=== PATIENT | female | born 1975 | race Caucasian/White ===

== ENCOUNTER → 2016-12-01 | Outpatient (CLI) | payer OTHER ==
[~2016-12-01] MED LIST: ALBUTEROL0.09 MG/A2 IH; AMOXICILLIN500 MG PO; ANAPROX DS550 MG PO; ANTIVERT25 MG PO; CLARITIN10 MG PO; KEFLEX500 MG PO; MOTRIN800 MG PO; NKHM; PEPCID20 MG PO; PRILOSEC20 M1 PO; PROAIR HFA0.09 MG/AC IH; Phenergan25 MG PO; SF 5000 PLUS1.1% DE; VIBRAMYCIN100 MG PO; WYMOX500 MG PO; ZANTAC150 MG PO; ZITHROMAX Z PA250 MG PO; ZOFRAN4 MG PO
== END ==
LOC: US 13:44
DX: I65.21 Occlusion and stenosis of right carotid artery (principal); R53.1 Weakness; R20.9 Unspecified disturbances of skin sensation; Z87.891 Personal history of nicotine dependence

== ENCOUNTER 2018-01-29 16:05 | Emergency (ER) | payer OTHER ==
[~2018-01-29] VITALS: Ht 154.9 cm; Wt 64.4 kg
[2018-01-29 16:18] VITALS: BP 138/88
[2018-01-29] MEDS ORDERED: NEXIUM20 M2 PO (16:20)
[2018-01-29] MEDS ORDERED: LIDEX 0.05% CRE15 GM T (16:53)
== END 2018-01-29 17:01 | disposition home or self-care (01) ==
LOC: ED 16:05
DX: R60.9 Edema, unspecified (principal); F17.200 Nicotine dependence, unspecified, uncomplicated; Z79.899 Other long term (current) drug therapy; Z88.2 Allergy status to sulfonamides; Z88.5 Allergy status to narcotic agent; Z88.6 Allergy status to analgesic agent; Z88.8 Allergy status to other drugs, medicaments and biological substances

== ENCOUNTER 2018-05-03 23:15 | Inpatient (IN) | payer OTHER ==
[~2018-05-03] VITALS: Ht 157.4 cm; Wt 66.8 kg
[~2018-05-03 23:15] MED LIST changes: +LIDEX 0.05% CRE15 GM T; +NEXIUM20 M2 PO
[2018-05-03 23:17] VITALS: BP 160/73
[2018-05-03 23:29] LABS: BASO # 0.1 10*3/uL (0.0-0.1); BASO % 0.6 % (0.0-1.0); EOS # 0.3 10*3/uL (0.0-0.4); EOS % 2.8 % (1.0-4.0); HEMATOCRIT 34.3 % (37.0-47.0); HEMOGLOBIN 9.7 g/dl (12.0-16.0); LYMPH % 29.8 % (27.0-41.0); MEAN CELL VOLUME 70.3 fl (81.0-99.0); MEAN CORPUSCULAR HGB 19.9 pg (27.0-31.0); MEAN CORPUSCULAR HGB CONC 28.3 g/dl (33.0-37.0); MEAN PLATELET VOLUME 8.7 fl (9.6-12.3); MONO # 0.7 10*3/uL (0.1-1.0); NEUT % 59.6 % (47.0-73.0); PLATELET COUNT AUTOMATED 237 10*3/uL (130-400); RED BLOOD COUNT 4.88 10*6/uL (4.10-5.10); RED CELL DISTRI WIDTH 18.9 % (0-14.5); WHITE BLOOD COUNT 10.1 10*3/uL (4.8-10.8)
[2018-05-03 23:30] VITALS: BP 157/80
[2018-05-03 23:40] LABS: ACT PARTIAL THROMBO TIME 23.6 SECONDS (20.8-31.5); INTERNATIONAL NORM RATIO 0.9 (2.0-3.5)
[2018-05-03 23:48] LABS: ALBUMIN 3.9 gm/dl (3.1-4.5); ALKALINE PHOSPHATASE 81 U/L (45-117); BUN 13 mg/dl (7-24); CHLORIDE 111 mmol/L (98-107); CREATININE 1.03 mg/dL (0.55-1.02); POTASSIUM 3.8 mmol/L (3.5-5.1); SGOT/AST 14 IU/L (3-35); SGPT/ALT 24 U/L (12-78); SODIUM 141 mmol/L (136-145); TOTAL PROTEIN 7.9 gm/dL (6.4-8.2)
[2018-05-03 23:49] LABS: TROPONIN I < 0.015 ng/ml (<0.045)
[2018-05-03 23:50] VITALS: BP 145/82
[2018-05-04] VITALS (7 sets, daily range): BP systolic 128–148; BP diastolic 76–84
[2018-05-04 06:05] LABS: ALBUMIN 3.7 gm/dl (3.1-4.5); ALKALINE PHOSPHATASE 76 U/L (45-117); BUN 11 mg/dl (7-24); CHLORIDE 112 mmol/L (98-107); CHOLESTEROL 184 mg/dL (<200); HDL CHOLESTEROL 31 mg/dl (40-60); IRON 20 ug/dL (50-170); LDL CHOLESTEROL 131 mg/dL (9-159); PHOSPHOROUS 3.3 mg/dL (2.5-4.9); POTASSIUM 3.7 mmol/L (3.5-5.1); SGOT/AST 10 IU/L (3-35); SGPT/ALT 21 U/L (12-78); SODIUM 144 mmol/L (136-145); TOTAL IRON BINDING CAPACITY 405 ug/dl (250-450); TOTAL PROTEIN 7.3 gm/dL (6.4-8.2); TRIGLYCERIDES 109 mg/dl (<150); VLDL CHOLESTEROL 22 mg/dL (6-40)
[2018-05-04 06:07] LABS: BASO % 0.5 % (0.0-1.0); EOS # 0.2 10*3/uL (0.0-0.4); EOS % 2.2 % (1.0-4.0); HEMATOCRIT 32.5 % (37.0-47.0); HEMOGLOBIN 9.2 g/dl (12.0-16.0); LYMPH # 1.8 10*3/uL (1.3-4.4); LYMPH % 22.6 % (27.0-41.0); MEAN CELL VOLUME 69.7 fl (81.0-99.0); MEAN CORPUSCULAR HGB 19.7 pg (27.0-31.0); MEAN CORPUSCULAR HGB CONC 28.3 g/dl (33.0-37.0); MEAN PLATELET VOLUME 9.1 fl (9.6-12.3); MONO # 0.6 10*3/uL (0.1-1.0); MONO % 7.7 % (3.0-9.0); NEUT # 5.4 10*3/uL (2.3-7.9); NEUT % 66.8 % (47.0-73.0); PLATELET COUNT AUTOMATED 224 10*3/uL (130-400); RED BLOOD COUNT 4.66 10*6/uL (4.10-5.10); RED CELL DISTRI WIDTH 18.6 % (0-14.5); WHITE BLOOD COUNT 8.1 10*3/uL (4.8-10.8)
[2018-05-04 06:11] LABS: FREE T4 0.99 ng/dl (0.76-1.46)
[2018-05-04 06:12] LABS: ACT PARTIAL THROMBO TIME 23.5 SECONDS (20.8-31.5)
[2018-05-04 07:35] LABS: FERRITIN 3.4 ng/mL (10.0-291.0); VITAMIN D, 25-HYDROXY 17.6 ng/mL (30-100)
[2018-05-04] MEDS ORDERED: VITAMIN D-32000 UNIT PO (10:48)
[2018-05-04] MEDS ORDERED: FEROSUL325 MG PO (10:48)
== END 2018-05-04 11:20 | disposition home or self-care (01) | DRG 313 ==
LOC: ED 23:15 → EDHOLD 05-04 03:01 → 4E 05-04 03:06
PROVIDERS: Emergency Medicine; Internal Medicine
DX: R07.9 Chest pain, unspecified (principal); N17.0 Acute kidney failure with tubular necrosis; K76.0 Fatty (change of) liver, not elsewhere classified; D50.9 Iron deficiency anemia, unspecified; E86.0 Dehydration; E78.5 Hyperlipidemia, unspecified; K21.9 Gastro-esophageal reflux disease without esophagitis; R79.89 Other specified abnormal findings of blood chemistry; E83.41 Hypermagnesemia; E87.8 Other disorders of electrolyte and fluid balance, not elsewhere classified; Z79.899 Other long term (current) drug therapy; Z88.8 Allergy status to other drugs, medicaments and biological substances; Z91.041 Radiographic dye allergy status; Z72.0 Tobacco use; Z88.2 Allergy status to sulfonamides; Z90.89 Acquired absence of other organs; Z80.0 Family history of malignant neoplasm of digestive organs; Z84.89 Family history of other specified conditions

== ENCOUNTER → 2019-01-20 | Outpatient (CLI) | payer OTHER ==
[~2019-01-20] MED LIST changes: +FEROSUL325 MG PO; +VITAMIN D-32000 UNIT PO
== END | disposition home or self-care (01) ==
LOC: US 15:55
DX: N83.292 Other ovarian cyst, left side (principal)

== ENCOUNTER → 2019-06-18 | Outpatient (CLI) | payer OTHER | END | disposition home or self-care (01) | LOC: US 14:43 | DX: N93.9 Abnormal uterine and vaginal bleeding, unspecified (principal); N83.202 Unspecified ovarian cyst, left side ==

== ENCOUNTER → 2019-08-14 | Outpatient (CLI) | payer OTHER ==
[~2019-08-14] MED LIST changes: +OMEPRAZOLE40 MG PO; +PREDNISOLO15 MG/5 M1 PO; +PREDNISONE50 MG PO; +ROBITUSSIN DM 105 ML PO
== END | disposition home or self-care (01) ==
LOC: RAD 10:44
DX: S99.812A Other specified injuries of left ankle, initial encounter (principal); M25.572 Pain in left ankle and joints of left foot; M79.641 Pain in right hand; X58.XXXA Exposure to other specified factors, initial encounter; Y93.89 Activity, other specified; Y92.89 Other specified places as the place of occurrence of the external cause; Y99.8 Other external cause status

== ENCOUNTER 2019-08-27 19:47 | Emergency (ER) | payer OTHER ==
[~2019-08-27] VITALS: Ht 157.4 cm; Wt 63.0 kg
[~2019-08-27 19:47] MED LIST changes: -OMEPRAZOLE40 MG PO; -PREDNISOLO15 MG/5 M1 PO; -PREDNISONE50 MG PO; -ROBITUSSIN DM 105 ML PO
[2019-08-27 19:48] VITALS: BP 147/97
[2019-08-27] MEDS ORDERED: PREDNISONE50 MG PO (22:51)
[2019-08-28] MEDS ORDERED: ROBITUSSIN DM 105 ML PO (16:54)
[2019-08-28] MEDS ORDERED: PREDNISOLO15 MG/5 M1 PO (16:54)
== END 2019-08-27 22:56 | disposition home or self-care (01) ==
LOC: ED 19:47
DX: J40 Bronchitis, not specified as acute or chronic (principal); F17.200 Nicotine dependence, unspecified, uncomplicated; E78.00 Pure hypercholesterolemia, unspecified; K21.9 Gastro-esophageal reflux disease without esophagitis; Z79.899 Other long term (current) drug therapy; Z90.89 Acquired absence of other organs; Z91.041 Radiographic dye allergy status; Z88.2 Allergy status to sulfonamides; Z88.6 Allergy status to analgesic agent; Z88.5 Allergy status to narcotic agent

== ENCOUNTER → 2019-08-27 | Outpatient (CLI) | payer OTHER | END | disposition home or self-care (01) | LOC: RAD 15:09 | DX: R06.2 Wheezing (principal); R06.89 Other abnormalities of breathing; F17.210 Nicotine dependence, cigarettes, uncomplicated; Z91.89 Other specified personal risk factors, not elsewhere classified ==

== ENCOUNTER 2019-08-28 16:14 | Emergency (ER) | payer OTHER ==
[~2019-08-28] VITALS: Ht 157.4 cm; Wt 63.0 kg
[~2019-08-28 16:14] MED LIST changes: +PREDNISONE50 MG PO
[2019-08-28 16:16] VITALS: BP 142/88
[2019-08-28] MEDS ORDERED: PREDNISOLO15 MG/5 M1 PO (16:54)
[2019-08-28] MEDS ORDERED: ROBITUSSIN DM 105 ML PO (16:54)
== END 2019-08-28 17:46 | disposition home or self-care (01) ==
LOC: ED 16:14
DX: J45.909 Unspecified asthma, uncomplicated (principal); Z76.0 Encounter for issue of repeat prescription; F17.200 Nicotine dependence, unspecified, uncomplicated; Z91.041 Radiographic dye allergy status; Z88.2 Allergy status to sulfonamides; Z88.6 Allergy status to analgesic agent; Z88.1 Allergy status to other antibiotic agents; Z91.018 Allergy to other foods; Z88.8 Allergy status to other drugs, medicaments and biological substances; Z79.899 Other long term (current) drug therapy

== ENCOUNTER 2019-09-04 11:18 | Inpatient (IN) | payer OTHER ==
[~2019-09-04] VITALS: Ht 157.5 cm; Wt 59.6 kg
[~2019-09-04 11:18] MED LIST changes: +PREDNISOLO15 MG/5 M1 PO; +ROBITUSSIN DM 105 ML PO
[2019-09-04 11:19] VITALS: BP 128/94
[2019-09-04 11:33] LABS: BASO % 0.2 % (0.0-1.0); EOS # 0.1 10*3/uL (0.0-0.4); EOS % 0.6 % (1.0-4.0); HEMATOCRIT 42.3 % (37.0-47.0); HEMOGLOBIN 13.3 g/dl (12.0-16.0); LYMPH # 1.8 10*3/uL (1.3-4.4); LYMPH % 18.9 % (27.0-41.0); MEAN CELL VOLUME 83.6 fl (81.0-99.0); MEAN CORPUSCULAR HGB 26.3 pg (27.0-31.0); MEAN CORPUSCULAR HGB CONC 31.4 g/dl (33.0-37.0); MEAN PLATELET VOLUME 8.3 fl (9.6-12.3); MONO # 0.5 10*3/uL (0.1-1.0); MONO % 5.4 % (3.0-9.0); NEUT # 7.1 10*3/uL (2.3-7.9); NEUT % 74.7 % (47.0-73.0); PLATELET COUNT AUTOMATED 206 10*3/uL (130-400); RED BLOOD COUNT 5.06 10*6/uL (4.10-5.10); RED CELL DISTRI WIDTH 13.9 % (0-14.5); WHITE BLOOD COUNT 9.6 10*3/uL (4.8-10.8)
[2019-09-04 11:41] LABS: ACT PARTIAL THROMBO TIME 25.9 SECONDS (20.0-32.1)
[2019-09-04 11:48] LABS: ALKALINE PHOSPHATASE 73 U/L (45-117); BUN 11 mg/dl (7-24); CHLORIDE 106 mmol/L (98-107); CREATININE 0.98 mg/dL (0.55-1.02); SGOT/AST 10 IU/L (3-35); SGPT/ALT 23 U/L (12-78); SODIUM 139 mmol/L (136-145); TOTAL PROTEIN 7.8 gm/dL (6.4-8.2)
[2019-09-04 11:58] LABS: TROPONIN I < 0.015 ng/ml (<0.045)
[2019-09-04 12:20] VITALS: BP 145/85
[2019-09-04 12:55] VITALS: BP 152/84
--- NOTE | 2019-09-04 12:55 | NUR ---
A 44, admitted to 5E, under the services of YUVAL [place] DO with a diagnosis of CHEST PAIN. Chief complaint is MIDSTERNAL CHEST PAIN RADIATING TO BACK, SHORTNESS OF BREATH,DIAPHORETIC AND NAUSEA. Patient arrived via stretcher from ER. Monitor applied. Initial assessment completed. Vital signs taken and recorded. YUVAL [place] DO notified of admission to the unit. Orders received. See assessment for past medical history, medications and allergies. Patient and/or family oriented to unit. Clothing/patient valuable form completed. CITLALI DUPREE
[2019-09-04] MEDS ORDERED: OMEPRAZOLE40 MG PO (13:33)
[2019-09-04 16:00] VITALS: BP 129/78
--- NOTE | 2019-09-04 18:15 | NUR ---
CALLED REGARDING PATIENT STATING THAT SHE STILL FEELS SHORT OF BREATH AND THAT SHE STILL IS NOT ABLE TO EAT. PATIENT STATES THAT SHE HAS NOT BEEN ABLE TO EAT FOR 7DAYS. THAT SHE CONSTANTLY FEELS FULL
--- NOTE | 2019-09-04 18:20 | NUR ---
IN TO SEE PATIENT.
[2019-09-04 20:00] VITALS: BP 127/75
--- NOTE | 2019-09-04 20:06 | NUR ---
19:20 INSTRUCTED PT ON PROPER USE OF I.S. PT ACHIEVED 1600+ ML X 10 BREATHS. INSTRUCTED PT TO DO 10-12 BREATHS EVERY HOUR WHILE AWAKE.
--- NOTE | 2019-09-04 21:00 | NUR ---
24 HR chart check completed.
[2019-09-05] VITALS (8 sets, daily range): BP systolic 91–139; BP diastolic 46–82
[2019-09-05 06:14] LABS: BUN 13 mg/dl (7-24); CHLORIDE 106 mmol/L (98-107); CREATININE 0.94 mg/dL (0.55-1.02); POTASSIUM 3.2 mmol/L (3.5-5.1); SODIUM 139 mmol/L (136-145)
--- NOTE | 2019-09-05 06:45 | NUR ---
CALLED DOWN TO SURGERY TO ASK WHEN PATIENT EGD WILL BE DONE THEY WERE UNSURE BUT DR ROMANO WILL BE HERE AFTER NOON. ASK ANESTHIA IF PATIENT WAS ABLE TO HAVE ICE CHIPS THIS AM AND THIS WAS CLEARED BY ANESTHIA FOR PATIENT TO HAVE ICE CHIPS THIS AM WHEN BRUSHING TEETH AND THEN NPO.
--- NOTE | 2019-09-05 07:15 | NUR ---
RECEIVED BEDSIDE REPORT ON PT AT THIS TIME. PT SITTING UP IN BED, ALERT ORIENTED AND PLEASANT MOOD WITH NO COMPLAINTS VOICED AT THIS TIME. RESPIRATIONS EASY AND UNLABORED AT THIS TIME. PT C/O NOTHING. WILL MONITOR, CALL LIGHT IN REACH.
--- NOTE | 2019-09-05 09:00 | NUR ---
Multifold Operator in to talk to patient. Patient states lives at home with her . There are 0 steps in the home. Physician: Ilda Weiss [facility]: [facility] Home health services: none Patient's level of ADLs: INDEPENDENT Patient has working utilities: yes DME: none Follow-up physician's appointment after d/c: will be made by the hospitalist nurse director upon discharge Does patient want to access PORTAL?: no Discharge plan discussed with patient. Her is at the bedside. She lives at home with her . She is independent in her ADLs and ambulation. Discussed home health care services and she denies any home needs at this time. When medically stable she will be discharged to home. Her will provide transportation on discharge. VALERY CRAWFORD
--- NOTE | 2019-09-05 10:11 | NUR ---
ASSESSMENT COMPLETE AT THIS TIME. SURGERY QUESTIONNAIRE COMPLETED. PT PO MEDICATIONS HELD AT THIS TIME DUE TO NPO STATUS. PT DENIES CHEST PAIN AND SHORTNESS OF BREATH ON ROOM AIR. SITTING AT BEDSIDE. CALL LIGHT IN REACH.
--- NOTE | 2019-09-05 10:23 | NUR ---
CONFIRMED WITH DR DAWN THAT IT IS OKAY TO WAIT UNTIL AFTER PT SURGERY TO GIVE SUPPLEMENTAL POTASSIUM.
--- NOTE | 2019-09-05 11:30 | NUR ---
NOTIFIED SURGERY THAT PT HAS QUESTIONS REGARDING ANESTHESIA. SURGERY NURSE STATES THAT ANESTHESIOLOGIST WILL BE UP TO TALK TO PATIENT AND THAT SHE CAN ASK HIM QUESTIONS. PATIENT NOTIFIED.
--- NOTE | 2019-09-05 13:00 | NUR ---
PT DOWN TO SURGERY AT THIS TIME.
--- NOTE | 2019-09-05 16:00 | NUR ---
RECEIVED REPORT FROM SURGERY ON PT. PT STABLE PER SURGERY RN.
--- NOTE | 2019-09-05 16:05 | NUR ---
CT CALLS THIS NURSE AND ASKS FOR NURSE TO CALL CT WHEN PT IS BACK TO FLOOR FROM SURGERY, IN ORDER TO HAVE CT ABDOMEN/PELVIS DONE PER ORDERS PLACED BY DR ROMANO.
--- NOTE | 2019-09-05 16:08 | NUR ---
CONFIRMED WITH CT AND SURGERY THAT DR ROMANO WANTS PT TO HAVE PO CONTRAST FOR CT.
--- NOTE | 2019-09-05 16:48 | NUR ---
PT STATES THAT SHE DOES NOT THINK SHE CAN DRINK THE BARIUM SULFATE DRINK FOR CT BECAUSE SHE IS ALLERGIC TO IVP DYE. PT EXPLAINED THAT BARIUM AND IVP DYE ARE DIFFERENT. CT CALLED REGARDING THIS AND FURTHER EXPLAINED THAT THE ELEMENTS IN THE TWO SUBSTANCES ARE DIFFERENT AND THAT THE PATIENT IS SAFE TO DRINK THE BARIUM. PT STATES THAT SHE IS NOT SURE SHE CAN TOLERATED THE BARIUM AND STATES THAT SHE WILL TRY HER BEST. PT STATES THAT SHE IS HUNGRY/THIRSTY AND STATES THAT SHE IS NOT HAPPY THAT SHE IS STILL UNABLE TO EAT. WILL CALL SURGERY TO ASK ABOUT A DIET ORDER. WILL NOTIFY PT IF DIET ORDER IS PLACED.
--- NOTE | 2019-09-05 17:10 | NUR ---
CALLED DOWN TO SURGERY FOR DR ROMANO AND CALL PLACED TO HOSPITALIST FOR DIET ORDER. TANA STATES THAT PT CAN HAVE A REGULAR DIET WHEN THEY ARE DONE WITH CT. WILL NOTIFY PT.
--- NOTE | 2019-09-05 17:15 | NUR ---
PT STATES THAT SHE CAN ONLY DRINK ONE BOTTLE OF THE BARIUM AND CANNOT DO THE SECOND ONE. PT REFUSES TO TRY THE SECOND BOTTLE. CT NOTIFIED AND STATES THAT THEY WILL BE UP TO GET PATIENT WITHIN 30 MINUTES. WILL NOTIFY PATIENT.
--- NOTE | 2019-09-05 17:19 | NUR ---
NOTIFIED PHARMACY THAT PT MEDICATIONS NEED RE TIMED SO THAT SHE CAN TAKE THE ORDERED POTASSIUM AND PRILOSEC THAT MAY NOT BE AVAILABLE TO PULL AT THIS TIME.
--- NOTE | 2019-09-05 17:44 | NUR ---
PT POTASSIUM ORDERED RENEWED PER NURSING MEASURE SO THAT MEDICATION CAN BE PULLED FROM [facility] AND GIVEN TO PT AFTER SHE RETURNS FROM CT.
--- NOTE | 2019-09-05 18:41 | NUR ---
PT RETURNS FROM CT AND IS CAUGHT UP ON MEDICATIONS AT THIS TIME.
--- NOTE | 2019-09-05 19:30 | NUR ---
PT AMBULATORY IN ROOM. NO C/O AT THIS TIME. NO SOB NOTED. PT USING INCENTIVE SPIROMETER. CALL LIGHT IN REACH. SEE SHIFT ASSESSMENT.
--- NOTE | 2019-09-05 22:00 | NUR ---
RESTING IN BED. RESP-EASY AND REGULAR. NO C/O AT THIS TIME. CALL LIGHT IN REACH.
[2019-09-06] VITALS: BP 117/67
--- NOTE | 2019-09-06 | NUR ---
PT RESTING IN BED. RESP-EASY AND REGULAR. NO C/O AT THIS TIME. CALL LIGHT IN REACH. SEE SHIFT ASSESSMENT.
--- NOTE | 2019-09-06 06:00 | NUR ---
RESTING IN BED WITH EYES CLOSED. AWAKENS EASILY. NO C/O AT THIS TIME. CALL LIGHT IN REACH.
[2019-09-06 08:00] VITALS: BP 124/63
--- NOTE | 2019-09-06 08:00 | NUR ---
Patient resting quietly with no c/o discomfort. Respirations easy and regular. Vital signs stable. No overt distress. RIA ALEMAN R
[2019-09-06] MEDS ORDERED: OMEPRAZOLE40 MG PO (10:01)
--- NOTE | 2019-09-06 10:56 | NUR ---
Discharge instructions reviewed with patient/family. Patient receptive and verbalizes understanding. Follow-up care arranged. Written instructions given to patient/family. RIA ALEMAN
== END 2019-09-06 10:56 | disposition home or self-care (01) | DRG 392 ==
LOC: ED 11:18 → EDHOLD 12:39 → 5E 12:39
PROVIDERS: Emergency Medicine; ADMIT Family Medicine
PROC: 0DB78ZX Excision of Stomach, Pylorus, Via Natural or Artificial Opening Endoscopic, Diagnostic (ICD-10-PCS; principal; 2019-09-05)
DX: K29.70 Gastritis, unspecified, without bleeding (principal); S22.42XA Multiple fractures of ribs, left side, initial encounter for closed fracture; K76.0 Fatty (change of) liver, not elsewhere classified; E87.6 Hypokalemia; R73.9 Hyperglycemia, unspecified; E83.41 Hypermagnesemia; F17.210 Nicotine dependence, cigarettes, uncomplicated; K21.9 Gastro-esophageal reflux disease without esophagitis; K44.9 Diaphragmatic hernia without obstruction or gangrene; R63.0 Anorexia; R13.10 Dysphagia, unspecified; J44.9 Chronic obstructive pulmonary disease, unspecified; X58.XXXA Exposure to other specified factors, initial encounter; Y93.89 Activity, other specified; Y92.89 Other specified places as the place of occurrence of the external cause; Z71.6 Tobacco abuse counseling; Y99.8 Other external cause status; Z88.6 Allergy status to analgesic agent; Z88.4 Allergy status to anesthetic agent; Z88.1 Allergy status to other antibiotic agents; Z91.041 Radiographic dye allergy status; Z88.2 Allergy status to sulfonamides; Z88.8 Allergy status to other drugs, medicaments and biological substances; Z91.018 Allergy to other foods; Z80.0 Family history of malignant neoplasm of digestive organs; Z81.8 Family history of other mental and behavioral disorders; Z82.62 Family history of osteoporosis; Z79.899 Other long term (current) drug therapy; Z68.24 Body mass index [BMI] 24.0-24.9, adult

== ENCOUNTER 2020-05-08 23:42 | Emergency (ER) | payer OTHER ==
[~2020-05-08] VITALS: Ht 157.4 cm; Wt 65.8 kg
[~2020-05-08 23:42] MED LIST changes: +OMEPRAZOLE40 MG PO
[2020-05-09 00:04] LABS: BASO # 0.1 10*3/uL (0.0-0.1); BASO % 0.6 % (0.0-1.0); EOS # 0.1 10*3/uL (0.0-0.4); EOS % 0.8 % (1.0-4.0); HEMATOCRIT 26.4 % (37.0-47.0); LYMPH # 1.7 10*3/uL (1.3-4.4); LYMPH % 15.6 % (27.0-41.0); MEAN CORPUSCULAR HGB 19.1 pg (27.0-31.0); MEAN PLATELET VOLUME 8.6 fl (9.6-12.3); MONO # 0.5 10*3/uL (0.1-1.0); MONO % 4.6 % (3.0-9.0); NEUT # 8.5 10*3/uL (2.3-7.9); NEUT % 77.9 % (47.0-73.0); PLATELET COUNT AUTOMATED 251 10*3/uL (130-400); RED BLOOD COUNT 3.88 10*6/uL (4.10-5.10); RED CELL DISTRI WIDTH 18.8 % (0-14.5); WHITE BLOOD COUNT 10.9 10*3/uL (4.8-10.8)
[2020-05-09 00:17] LABS: ACT PARTIAL THROMBO TIME 22.1 SECONDS (20.0-32.1); INTERNATIONAL NORM RATIO 0.9 (2.0-3.5)
[2020-05-09 00:21] LABS: ALBUMIN 3.7 gm/dl (3.1-4.5); ALKALINE PHOSPHATASE 77 U/L (45-117); BUN 14 mg/dl (7-24); CHLORIDE 111 mmol/L (98-107); CREATININE 0.85 mg/dL (0.55-1.02); SGOT/AST 21 IU/L (3-35); SGPT/ALT 24 U/L (12-78); SODIUM 139 mmol/L (136-145); TOTAL PROTEIN 7.5 gm/dL (6.4-8.2)
[2020-05-09 02:05] VITALS: BP 142/81
== END 2020-05-09 02:48 | disposition short-term general hospital (02) ==
LOC: ED 23:42
PROVIDERS: Emergency Medicine Emergency Medical Services
DX: I21.4 Non-ST elevation (NSTEMI) myocardial infarction (principal); K21.9 Gastro-esophageal reflux disease without esophagitis; Z88.8 Allergy status to other drugs, medicaments and biological substances; Z88.2 Allergy status to sulfonamides; Z88.5 Allergy status to narcotic agent; Z91.041 Radiographic dye allergy status; Z79.899 Other long term (current) drug therapy

== ENCOUNTER 2020-05-28 22:06 | Observation (INO) | payer OTHER ==
[~2020-05-28] VITALS: Ht 157.4 cm; Wt 65.4 kg
[2020-05-28 22:16] VITALS: BP 120/68
[2020-05-28 22:30] LABS: BASO % 0.6 % (0.0-1.0); EOS # 0.2 10*3/uL (0.0-0.4); EOS % 2.5 % (1.0-4.0); HEMATOCRIT 35.4 % (37.0-47.0); LYMPH # 2.2 10*3/uL (1.3-4.4); LYMPH % 31.3 % (27.0-41.0); MEAN CELL VOLUME 74.7 fl (81.0-99.0); MEAN CORPUSCULAR HGB 22.4 pg (27.0-31.0); MEAN CORPUSCULAR HGB CONC 29.9 g/dl (33.0-37.0); MEAN PLATELET VOLUME 8.2 fl (9.6-12.3); MONO # 0.5 10*3/uL (0.1-1.0); MONO % 7.8 % (3.0-9.0); NEUT % 57.7 % (47.0-73.0); PLATELET COUNT AUTOMATED 249 10*3/uL (130-400); RED BLOOD COUNT 4.74 10*6/uL (4.10-5.10); RED CELL DISTRI WIDTH 24.7 % (0-14.5); WHITE BLOOD COUNT 6.9 10*3/uL (4.8-10.8)
[2020-05-28 22:41] LABS: ACT PARTIAL THROMBO TIME 25.5 SECONDS (20.0-32.1)
[2020-05-28 22:47] LABS: ALBUMIN 3.6 gm/dl (3.1-4.5); ALKALINE PHOSPHATASE 81 U/L (45-117); BUN 15 mg/dl (7-24); CHLORIDE 112 mmol/L (98-107); CREATININE 0.84 mg/dL (0.55-1.02); POTASSIUM 4.1 mmol/L (3.5-5.1); SGOT/AST 12 IU/L (3-35); SGPT/ALT 23 U/L (12-78); SODIUM 141 mmol/L (136-145); TOTAL PROTEIN 7.3 gm/dL (6.4-8.2)
[2020-05-28 22:56] LABS: TROPONIN I < 0.015 ng/ml (<0.045)
[2020-05-29 02:00] VITALS: BP 124/78
[2020-05-29] MEDS ORDERED: ASPIRIN ADULT L81 M1 PO (02:26)
[2020-05-29] MEDS ORDERED: ATORVASTATIN CA40 M1 PO (02:27)
[2020-05-29 04:07] LABS: BASO % 0.6 % (0.0-1.0); EOS # 0.2 10*3/uL (0.0-0.4); EOS % 3.3 % (1.0-4.0); HEMATOCRIT 37.1 % (37.0-47.0); LYMPH # 2.4 10*3/uL (1.3-4.4); LYMPH % 33.8 % (27.0-41.0); MEAN CELL VOLUME 77.5 fl (81.0-99.0); MEAN CORPUSCULAR HGB 22.3 pg (27.0-31.0); MEAN CORPUSCULAR HGB CONC 28.8 g/dl (33.0-37.0); MEAN PLATELET VOLUME 8.5 fl (9.6-12.3); MONO # 0.5 10*3/uL (0.1-1.0); MONO % 6.9 % (3.0-9.0); NEUT # 3.9 10*3/uL (2.3-7.9); NEUT % 55.1 % (47.0-73.0); PLATELET COUNT AUTOMATED 225 10*3/uL (130-400); RED BLOOD COUNT 4.79 10*6/uL (4.10-5.10)
[2020-05-29 04:22] LABS: ALBUMIN 3.4 gm/dl (3.1-4.5); BUN 15 mg/dl (7-24); CHLORIDE 113 mmol/L (98-107); CHOLESTEROL 93 mg/dL (<200); CREATININE 0.81 mg/dL (0.55-1.02); FREE T4 1.15 ng/dl (0.76-1.46); POTASSIUM 3.7 mmol/L (3.5-5.1); SGOT/AST 18 IU/L (3-35); SGPT/ALT 20 U/L (12-78); SODIUM 142 mmol/L (136-145); TRIGLYCERIDES 107 mg/dl (<150); VLDL CHOLESTEROL 21 mg/dL (6-40)
[2020-05-29 04:29] LABS: HDL CHOLESTEROL 29 mg/dl (40-60); LDL CHOLESTEROL 43 mg/dL (9-159)
[2020-05-29 04:30] VITALS: BP 111/59
[2020-05-29 08:03] VITALS: BP 118/72
[2020-05-29 08:07] LABS: VITAMIN D, 25-HYDROXY 31.8 ng/mL (30-100)
[2020-05-29 08:35] LABS: ALKALINE PHOSPHATASE 77 U/L (45-117)
[2020-05-29 10:06] VITALS: BP 128/92
[2020-05-29] MEDS ORDERED: ZESTRIL,PRINIVIL5 MG PO (10:12)
[2020-05-29] MEDS ORDERED: TOPROL XL25 MG PO (10:13)
[2020-05-29] MEDS ORDERED: BRILINTA90 M1 PO ×2 (10:13→13:56)
[2020-05-29] MEDS ORDERED: MASON NATURAL325 MG PO (10:14)
[2020-05-29 10:15] VITALS: BP 128/92
[2020-05-29] MEDS ORDERED: NEXIUM40 M1 PO (10:17)
[2020-05-29 12:00] VITALS: BP 113/74
[2020-05-29] MEDS ORDERED: PROTONIX40 M2 PO (13:56)
== END 2020-05-29 15:05 | disposition home or self-care (01) ==
LOC: ED 22:06 → EDHOLD 23:34 → 4E 05-29 07:51
PROVIDERS: Emergency Medicine Emergency Medical Services; Internal Medicine; ADMIT Emergency Medicine
DX: R07.89 Other chest pain (principal); E87.8 Other disorders of electrolyte and fluid balance, not elsewhere classified; E83.41 Hypermagnesemia; F17.210 Nicotine dependence, cigarettes, uncomplicated; K21.9 Gastro-esophageal reflux disease without esophagitis; I25.10 Atherosclerotic heart disease of native coronary artery without angina pectoris; E78.5 Hyperlipidemia, unspecified; I10 Essential (primary) hypertension; Z71.6 Tobacco abuse counseling

== ENCOUNTER → 2020-06-22 | Outpatient (CLI) | payer OTHER ==
[~2020-06-22] MED LIST changes: +ASPIRIN ADULT L81 M1 PO; +ATORVASTATIN CA40 M1 PO; +BRILINTA90 M1 PO; +MASON NATURAL325 MG PO; +NEXIUM40 M1 PO; +PROTONIX40 M2 PO; +TOPROL XL25 MG PO; +ZESTRIL,PRINIVIL5 MG PO
== END | disposition home or self-care (01) ==
LOC: CARD 00:53
DX: I25.10 Atherosclerotic heart disease of native coronary artery without angina pectoris (principal); I51.9 Heart disease, unspecified

== ENCOUNTER 2020-08-21 10:15 | Emergency (ER) | payer BC ==
[2020-08-21] VITALS (8 sets, daily range): BP systolic 88–111; BP diastolic 30–60
[~2020-08-21] VITALS: Ht 157.4 cm; Wt 63.5 kg
[2020-08-21 10:40] LABS: BASO % 0.2 % (0.0-1.0); EOS # 0.1 10*3/uL (0.0-0.4); EOS % 1.1 % (1.0-4.0); HEMATOCRIT 26.8 % (37.0-47.0); LYMPH # 1.8 10*3/uL (1.3-4.4); LYMPH % 18.3 % (27.0-41.0); MEAN CELL VOLUME 82.2 fl (81.0-99.0); MEAN CORPUSCULAR HGB 25.8 pg (27.0-31.0); MEAN CORPUSCULAR HGB CONC 31.3 g/dl (33.0-37.0); MONO # 0.7 10*3/uL (0.1-1.0); MONO % 7.1 % (3.0-9.0); NEUT # 7.2 10*3/uL (2.3-7.9); PLATELET COUNT AUTOMATED 222 10*3/uL (130-400); RED BLOOD COUNT 3.26 10*6/uL (4.10-5.10); RED CELL DISTRI WIDTH 18.3 % (0-14.5); WHITE BLOOD COUNT 9.8 10*3/uL (4.8-10.8)
[2020-08-21 10:56] LABS: ALBUMIN 3.3 gm/dl (3.1-4.5); ALKALINE PHOSPHATASE 79 U/L (45-117); BUN 12 mg/dl (7-24); CHLORIDE 107 mmol/L (98-107); CREATININE 0.84 mg/dL (0.55-1.02); POTASSIUM 3.4 mmol/L (3.5-5.1); SGOT/AST 6 IU/L (3-35); SGPT/ALT 23 U/L (12-78); SODIUM 139 mmol/L (136-145); TOTAL PROTEIN 6.6 gm/dL (6.4-8.2)
[2020-08-21 10:58] LABS: BETA-HCG, QUANT < 1.0 mIU/mL (1-3)
[2020-08-21 12:25] LABS: BILIRUBIN 2+ (Negative); BLOOD 2+ (Negative); CLARITY Turbid (Clear); COLOR Red (Yellow); GLUCOSE Negative (Negative); KETONE Negative (Negative); NITRITE Positive (Negative); SPECIFIC GRAVITY 1.025 (1.001-1.030); UROBILINOGEN 0.2 E.U./dl (0.0-1.0)
[2020-08-21 12:44] LABS: LEUKO ESTERASE 3+ (Negative); PH 6.5 (4.5-8.0)
[2020-08-21 12:45] LABS: RBC TNTC rbc/hpf (0-2)
== END 2020-08-21 18:09 | disposition short-term general hospital (02) ==
LOC: ED 10:15
PROVIDERS: Nurse Practitioner Family
DX: D64.9 Anemia, unspecified (principal); N93.9 Abnormal uterine and vaginal bleeding, unspecified; F17.200 Nicotine dependence, unspecified, uncomplicated; Z88.8 Allergy status to other drugs, medicaments and biological substances; Z91.041 Radiographic dye allergy status; Z88.2 Allergy status to sulfonamides; Z79.899 Other long term (current) drug therapy

== ENCOUNTER 2020-09-06 09:35 | Emergency (ER) | payer BC ==
[~2020-09-06] VITALS: Ht 157.4 cm; Wt 65.8 kg
[2020-09-06 09:43] VITALS: BP 148/82
[2020-09-06 10:32] LABS: BASO % 0.4 % (0.0-1.0); EOS # 0.1 10*3/uL (0.0-0.4); EOS % 1.2 % (1.0-4.0); HEMATOCRIT 29.2 % (37.0-47.0); MEAN CELL VOLUME 84.6 fl (81.0-99.0); MEAN CORPUSCULAR HGB 25.2 pg (27.0-31.0); MEAN CORPUSCULAR HGB CONC 29.8 g/dl (33.0-37.0); MEAN PLATELET VOLUME 8.1 fl (9.6-12.3); MONO # 0.5 10*3/uL (0.1-1.0); MONO % 6.1 % (3.0-9.0); NEUT # 6.9 10*3/uL (2.3-7.9); NEUT % 80.1 % (47.0-73.0); PLATELET COUNT AUTOMATED 238 10*3/uL (130-400); RED BLOOD COUNT 3.45 10*6/uL (4.10-5.10); RED CELL DISTRI WIDTH 16.5 % (0-14.5); WHITE BLOOD COUNT 8.6 10*3/uL (4.8-10.8)
[2020-09-06 10:46] LABS: BILIRUBIN 1+ (Negative); BLOOD 2+ (Negative); CLARITY Turbid (Clear); COLOR Red (Yellow); GLUCOSE Negative (Negative); KETONE Negative (Negative); LEUKO ESTERASE 2+ (Negative); NITRITE Positive (Negative); UROBILINOGEN 0.2 E.U./dl (0.0-1.0)
[2020-09-06 10:57] LABS: ALBUMIN 3.6 gm/dl (3.1-4.5); ALKALINE PHOSPHATASE 77 U/L (45-117); BUN 13 mg/dl (7-24); CHLORIDE 112 mmol/L (98-107); CREATININE 0.84 mg/dL (0.55-1.02); POTASSIUM 3.7 mmol/L (3.5-5.1); SGOT/AST 6 IU/L (3-35); SGPT/ALT 17 U/L (12-78); SODIUM 141 mmol/L (136-145); TOTAL PROTEIN 7.1 gm/dL (6.4-8.2)
[2020-09-06 10:59] LABS: BACTERIA 4+; RBC TNTC rbc/hpf (0-2)
[2020-09-06] MEDS ORDERED: AMOXICILLI400 MG/51 PO (12:37)
== END 2020-09-06 12:49 | disposition left against medical advice (07) ==
LOC: ED 09:35
PROVIDERS: Nurse Practitioner Family
DX: N39.0 Urinary tract infection, site not specified (principal); N93.9 Abnormal uterine and vaginal bleeding, unspecified; F17.200 Nicotine dependence, unspecified, uncomplicated; Z79.82 Long term (current) use of aspirin; Z79.899 Other long term (current) drug therapy; Z88.8 Allergy status to other drugs, medicaments and biological substances; Z88.1 Allergy status to other antibiotic agents; Z91.041 Radiographic dye allergy status; Z88.6 Allergy status to analgesic agent

== ENCOUNTER → 2020-09-29 | Outpatient (CLI) | payer BC ==
[~2020-09-29] MED LIST changes: +AMOXICILLI400 MG/51 PO
== END | disposition home or self-care (01) ==
LOC: RAD 10:15
PROVIDERS: ATTEND Nurse Practitioner Family
DX: R31.9 Hematuria, unspecified (principal); Z87.442 Personal history of urinary calculi

== ENCOUNTER → 2021-10-19 | Outpatient (CLI) | payer OTHER ==
[2021-10-19 08:34] LABS: BASO % 0.4 % (0.0-1.0); EOS # 0.2 10*3/uL (0.0-0.4); EOS % 2.3 % (1.0-4.0); HEMATOCRIT 46.1 % (37.0-47.0); LYMPH # 1.6 10*3/uL (1.3-4.4); LYMPH % 20.2 % (27.0-41.0); MEAN CELL VOLUME 89.9 fl (81.0-99.0); MEAN CORPUSCULAR HGB 29.2 pg (27.0-31.0); MEAN CORPUSCULAR HGB CONC 32.5 g/dl (33.0-37.0); MEAN PLATELET VOLUME 8.8 fl (9.6-12.3); MONO # 0.5 10*3/uL (0.1-1.0); MONO % 6.8 % (3.0-9.0); NEUT # 5.5 10*3/uL (2.3-7.9); NEUT % 69.9 % (47.0-73.0); PLATELET COUNT AUTOMATED 174 10*3/uL (130-400); RED BLOOD COUNT 5.13 10*6/uL (4.10-5.10); RED CELL DISTRI WIDTH 14.1 % (0-14.5); WHITE BLOOD COUNT 7.8 10*3/uL (4.8-10.8)
[2021-10-19 09:03] LABS: ALBUMIN 3.5 gm/dl (3.1-4.5); ALKALINE PHOSPHATASE 83 U/L (45-117); BUN 16 mg/dl (7-24); CHLORIDE 112 mmol/L (98-107); CHOLESTEROL 101 mg/dL (<200); LDL CHOLESTEROL 51 mg/dL (9-159); POTASSIUM 4.1 mmol/L (3.5-5.1); SGOT/AST 14 IU/L (3-35); SGPT/ALT 41 U/L (12-78); SODIUM 141 mmol/L (136-145); TOTAL PROTEIN 7.4 gm/dL (6.4-8.2); TRIGLYCERIDES 97 mg/dl (<150)
[2021-10-19 09:44] LABS: FERRITIN 9.1 ng/mL (10.0-291.0)
== END | disposition home or self-care (01) ==
LOC: LAB 08:01
PROVIDERS: ATTEND Nurse Practitioner Family
DX: I25.10 Atherosclerotic heart disease of native coronary artery without angina pectoris (principal); D50.9 Iron deficiency anemia, unspecified; E78.2 Mixed hyperlipidemia; E55.9 Vitamin D deficiency, unspecified

== ENCOUNTER → 2021-11-14 | Outpatient (CLI) | payer OTHER | END | disposition home or self-care (01) | LOC: RAD 09:07 | PROVIDERS: ATTEND Nurse Practitioner Family | DX: J44.9 Chronic obstructive pulmonary disease, unspecified (principal) ==

== ENCOUNTER → 2022-08-07 | Outpatient (CLI) | payer OTHER | END | disposition home or self-care (01) | LOC: CARD 00:09 | PROVIDERS: ATTEND Internal Medicine Cardiovascular Disease | DX: R07.89 Other chest pain (principal) ==

== ENCOUNTER → 2025-08-21 | Outpatient (CLI) | payer OTHER | END | disposition home or self-care (01) | LOC: CT 16:39 | PROVIDERS: ATTEND Nurse Practitioner Family | DX: Z12.2 Encounter for screening for malignant neoplasm of respiratory organs (principal); F17.200 Nicotine dependence, unspecified, uncomplicated; M47.819 Spondylosis without myelopathy or radiculopathy, site unspecified; J98.4 Other disorders of lung ==